=== PATIENT | female | born 1985 | race Caucasian/White ===

== ENCOUNTER 2018-11-18 02:37 | Emergency (ER) | payer SELFPAY ==
[~2018-11-18] VITALS: Ht 167.6 cm; Wt 61.4 kg
[2018-11-18 02:40] VITALS: Ht 167.6 cm; Wt 61.4 kg
[2018-11-18] MEDS ORDERED: ULTRAM50 MG PO (04:03)
[2018-11-18 04:35] VITALS: BP 138/72
== END 2018-11-18 04:35 | disposition home or self-care (01) ==
LOC: D.ER 02:37
DX: S83.92XA Sprain of unspecified site of left knee, initial encounter (principal); Y04.2XXA Assault by strike against or bumped into by another person, initial encounter; Y93.89 Activity, other specified; Y92.89 Other specified places as the place of occurrence of the external cause; S32.2XXA Fracture of coccyx, initial encounter for closed fracture